=== PATIENT | male | born 1975 | race Caucasian/White ===

== ENCOUNTER 2020-04-23 07:50 | Outpatient (CLI) | payer OTHER | END 2020-04-23 07:58 | disposition home or self-care (01) | LOC: NUCLEAR 07:50 | PROVIDERS: ATTEND Internal Medicine Cardiovascular Disease | DX: R07.89 Other chest pain (principal) | CPT/HCPCS: 78452; 93017; A9500 ==

== ENCOUNTER 2020-08-19 07:21 | Outpatient (CLI) | payer OTHER | END 2020-08-19 07:30 | disposition home or self-care (01) | LOC: SONOGRAMA 07:21 | PROVIDERS: ATTEND Internal Medicine Cardiovascular Disease | DX: K76.0 Fatty (change of) liver, not elsewhere classified (principal) ==

== ENCOUNTER 2021-11-30 07:43 | Outpatient (CLI) | payer OTHER | END 2021-11-30 07:55 | disposition home or self-care (01) | LOC: RAD 07:43 | PROVIDERS: ATTEND Internal Medicine Cardiovascular Disease | DX: M77.9 Enthesopathy, unspecified (principal) ==

== ENCOUNTER 2022-01-16 09:34 | Outpatient (CLI) | payer OTHER | END 2022-01-16 10:05 | disposition home or self-care (01) | LOC: LAB 09:34 | PROVIDERS: ATTEND Orthopaedic Surgery | DX: D64.9 Anemia, unspecified (principal); D68.8 Other specified coagulation defects; N39.0 Urinary tract infection, site not specified; E11.9 Type 2 diabetes mellitus without complications; B95.62 Methicillin resistant Staphylococcus aureus infection as the cause of diseases classified elsewhere ==

== ENCOUNTER 2022-01-25 08:54 | Outpatient (CLI) | payer OTHER | END 2022-01-25 09:14 | disposition home or self-care (01) | LOC: EKG 08:54 | PROVIDERS: ATTEND Orthopaedic Surgery | DX: Z76.89 Persons encountering health services in other specified circumstances (principal); I10 Essential (primary) hypertension; I49.9 Cardiac arrhythmia, unspecified ==

== ENCOUNTER 2022-01-31 09:15 | Day surgery (SDC) | payer OTHER ==
[~2022-01-31 09:15] MED LIST: ATACAND32 MG PO
== END 2022-01-31 19:15 | disposition home or self-care (01) ==
LOC: CIR.AMB 09:15
PROVIDERS: ATTEND Orthopaedic Surgery
DX: M66.361 Spontaneous rupture of flexor tendons, right lower leg (principal); M89.9 Disorder of bone, unspecified; M76.61 Achilles tendinitis, right leg; I10 Essential (primary) hypertension; Z20.822 Contact with and (suspected) exposure to COVID-19

== ENCOUNTER 2022-06-22 09:15 | Outpatient (CLI) | payer OTHER | END 2022-06-22 09:18 | disposition home or self-care (01) | LOC: SONOGRAMA 09:15 | PROVIDERS: ATTEND Internal Medicine Cardiovascular Disease | DX: K76.0 Fatty (change of) liver, not elsewhere classified (principal) ==

== ENCOUNTER 2022-06-22 11:25 | Outpatient (CLI) | payer OTHER | END 2022-06-22 11:26 | disposition home or self-care (01) | LOC: LAB 11:25 | PROVIDERS: ATTEND Internal Medicine Cardiovascular Disease | DX: I11.9 Hypertensive heart disease without heart failure (principal); E78.00 Pure hypercholesterolemia, unspecified; E11.9 Type 2 diabetes mellitus without complications; E03.9 Hypothyroidism, unspecified ==

== ENCOUNTER → 2023-10-04 | Emergency (ER) | payer OTHER ==
[~2023-10-04] VITALS: Ht 167.6 cm; Wt 85.7 kg
[~2023-10-04] MED LIST changes: +ATACAND16 MG
== END | disposition left against medical advice (07) ==
LOC: ER 16:49
DX: Z53.21 Procedure and treatment not carried out due to patient leaving prior to being seen by health care provider (principal)

== ENCOUNTER 2023-11-24 11:31 | Emergency (ER) | payer OTHER ==
[~2023-11-24] VITALS: Ht 167.6 cm; Wt 85.7 kg
[2023-11-24] MEDS ORDERED: KETOROLAC TROMETHAMINE 60 MG VIAL IM ONE (15:00)
== END 2023-11-24 16:41 ==
LOC: ER 11:31
DX: M79.672 Pain in left foot (principal); E78.00 Pure hypercholesterolemia, unspecified; I10 Essential (primary) hypertension